=== PATIENT | male | born 2000 | race Caucasian/White ===

== ENCOUNTER 2021-08-25 16:52 | Emergency (ER) | payer OTHER ==
[2021-08-25 17:02] VITALS: BP 148/97
--- NOTE | 2021-08-25 17:15 | ED Physician Documentation ---
PD HPI URI - Stated complaint Stated Complaint: COVID SYMPTOMS - Chief complaint Chief Complaint: Heent - History obtained from History obtained from: Patient - Additional information Additional information: 31-year-old gentleman sick since yesterday with nasal bastion and sore throat. Chills but no fevers or body aches. His daughter is sick with a viral URI. He needs Covid test. He is in the [place]. He has had 1 out of 2 moderna vaccines. Review of Systems Constitutional: reports: Chills. denies: Fever Nose: reports: Rhinorrhea / runny nose Throat: reports: Sore throat PD PAST MEDICAL HISTORY - Past Medical History Past Medical History: Yes Psych: Depression - Past Surgical History Past Surgical History: No HEENT: Tonsil/Adenoidectomy - Present Medications Home Medications: Ambulatory Orders Medication Instructions Recorded Confirmed Fluoxetine HCl [Prozac] 40 mg PO DAILY 08/25/21 08/25/21 - Allergies Allergies/Adverse Reactions: Allergies Allergy/AdvReac Type Severity Reaction Status Date / Time Penicillins Allergy Rash Verified 08/25/21 17:02 - Social History Does the pt smoke?: No Smoking Status: Never smoker PD ED PE NORMAL - Vitals Vital signs reviewed: Yes - General General: Alert and oriented X 3, No acute distress - HEENT HEENT: Pharynx benign (Oropharynx normal, surgically absent tonsils) - Neck Neck: Supple, no meningeal sign, No bony TTP - Cardiac Cardiac: RRR, No murmur - Respiratory Respiratory: No respiratory distress, Clear bilaterally - Neuro Neuro: Alert and oriented X 3, Normal speech Results - Vitals Vitals: Vital Signs - 24 hr 08/25/21 17:00 Temperature 36.8 C Heart Rate 99 Respiratory 12 Rate Blood Pressure 148/97 H O2 Saturation 97 Oxygen O2 Source Room air Departure - Departure Disposition: 01 Home, Self Care Clinical Impression: Viral syndrome Condition: Good Record reviewed to determine appropriate education?: Yes Instructions: ED Viral Syndrome Comments: You have a Covid test pending. You need to self quarantine until the result is done and negative. Do not leave your house. Do not get near anybody. The results should be done in 48 to 72 hours. We will call with a positive result, the fastest way to get a negative result for confirmation though is to go to the hospital website at [email or web address], click on the my [email or web address] tab and sign up for the patient portal. If any friends or family get sick and would like to have a Covid test done, but do not have signs or symptoms that would necessitate being hospitalized, we encourage testing through our coronavirus swabbing station, call [phone] to schedule an appointment. Ibuprofen as needed for aches and pains. Drink plenty of fluids. Return if worse. Forms: Activity restrictions
== END 2021-08-25 17:18 | disposition home or self-care (01) ==
LOC: EDBD 16:52 → ED 16:52
DX: B34.9 Viral infection, unspecified (principal); Z20.822 Contact with and (suspected) exposure to COVID-19
CPT/HCPCS: 99282; 99283

== ENCOUNTER 2021-09-13 13:19 | Emergency (ER) | payer OTHER ==
--- NOTE | 2021-09-13 14:06 | XRAY Report ---
PROCEDURE: Chest 1 View X-Ray INDICATIONS: Chest pain TECHNIQUE: One view of the chest was acquired. COMPARISON: None FINDINGS: Surgical changes and devices: None. Lungs and pleura: No pleural effusions or pneumothorax. Lungs are clear. Mediastinum: Mediastinal contours appear normal. Heart size is normal. Bones and chest wall: No suspicious bony lesions. Overlying soft tissues appear unremarkable. IMPRESSION: No acute cardiopulmonary pathology. Reviewed by: Christian Hernández MD on 09/13/2021 2:05 PM PDT Approved by: Christian Hernández MD on 09/13/2021 2:05 PM PDT Station ID: [id number]
[2021-09-13 14:13] LABS: BASOPHILS # (AUTO) 0.1 10^3/uL (0.0-0.1); BASOPHILS % (AUTO) 0.6 %; EOSINOPHILS # (AUTO) 0.1 10^3/uL (0.0-0.7); HCT - HEMATOCRIT 44.6 % (42.0-52.0); HGB - HEMOGLOBIN 15.3 g/dL (14.0-18.0); LYMPHOCYTES # (AUTO) 1.7 10^3/uL (1.5-3.5); LYMPHOCYTES % (AUTO) 17.4 %; MEAN CORPUSCULAR HEMOGLOBIN 29.5 pg (27.0-31.0); MEAN CORPUSCULAR HGB CONC 34.3 g/dL (32.0-36.0); MEAN CORPUSCULAR VOLUME 86.1 fL (80.0-94.0); MEAN PLATELET VOLUME 9.8 fL (7.4-11.4); MONOCYTES % (AUTO) 10.1 %; NEUTROPHILS # (AUTO) 6.9 10^3/uL (1.5-6.6); NEUTROPHILS % (AUTO) 70.4 %; PLT - PLATELET COUNT 229 10^3/uL (130-450); RED BLOOD COUNT 5.18 10^6/uL (4.70-6.10); RED CELL DISTRIBUTION WIDTH 12.8 % (12.0-15.0); WHITE BLOOD COUNT 9.8 x10^3/uL (4.8-10.8)
[2021-09-13 14:33] LABS: ALBUMIN 4.4 g/dL (3.2-5.5); ALBUMIN/GLOBULIN RATIO 1.3 (1.0-2.2); BILIRUBIN,TOTAL 0.8 mg/dL (0.2-1.0); CALCIUM 9.3 mg/dL (8.5-10.3); CREATININE 0.8 mg/dL (0.6-1.2); POTASSIUM 4.1 mmol/L (3.5-5.0); TOTAL PROTEIN 7.8 g/dL (6.7-8.2)
--- NOTE | 2021-09-13 14:43 | ED Physician Documentation ---
PD HPI CHEST PAIN - Stated complaint Stated Complaint: chest px - Chief complaint Chief Complaint: Cardiac - History obtained from History obtained from: Patient - History of Present Illness Timing - onset: How many days ago ( 3 days ago) Quality: Stabbing - Additional information Additional information: Pt is 31yo M presenting with chest pain. PMS significant for depression for which he takes prozac as well as recent ED evaluation at this facility for URI symptoms (08/25) Reports 3 days stabbing chest pain worse with deep inspiration. Denies fever, cough, hemoptysis, hospitalizations, travel, hisory of blood clots, illicit substance abuse. Review of Systems Constitutional: denies: Fever, Fatigue Eyes: denies: Loss of vision, Decreased vision Ears: denies: Loss of hearing Cardiac: reports: Chest pain / pressure Respiratory: denies: Dyspnea, Cough, Hemoptysis, Wheezing GI: denies: Abdominal Pain Musculoskeletal: denies: Neck pain Neurologic: denies: Generalized weakness Psychiatric: reports: Depressed. denies: Suicidal, Homicidal, Hallucinations, Delusions, Anxiety, Insomnia PD PAST MEDICAL HISTORY - Past Medical History Psych: Depression - Past Surgical History Past Surgical History: No HEENT: Tonsil/Adenoidectomy - Present Medications Home Medications: Ambulatory Orders Medication Instructions Recorded Confirmed Fluoxetine HCl [Prozac] 40 mg PO DAILY 08/25/21 08/25/21 Acetaminophen [Tylenol] 650 mg PO Q6H PRN #30 tablet 09/13/21 Ibuprofen [Motrin] 1 tablet PO Q8H PRN #30 tablet 09/13/21 - Allergies Allergies/Adverse Reactions: Allergies Allergy/AdvReac Type Severity Reaction Status Date / Time Penicillins Allergy Rash Verified 09/13/21 13:36 - Social History Does the pt smoke?: No Smoking Status: Never smoker PD ED PE NORMAL - General General: Alert and oriented X 3, No acute distress - HEENT HEENT: Atraumatic, EOMI - Neck Neck: Supple, no meningeal sign - Cardiac Cardiac: RRR, No murmur, No gallop, No rub, Strong equal pulses - Respiratory Respiratory: No respiratory distress, Clear bilaterally - Abdomen Abdomen: Normal bowel sounds, Non tender Results - Vitals Vitals: Vital Signs - 24 hr 09/13/21 13:33 Temperature 36.4 C L Heart Rate 103 H Respiratory 18 Rate Blood Pressure 150/90 H O2 Saturation 96 Oxygen O2 Source Room air - Labs Labs: Laboratory Tests 09/13/21 09/13/21 09/13/21 14:05 14:05 14:05 WBC 9.8 RBC 5.18 Hgb 15.3 Hct 44.6 MCV 86.1 MCH 29.5 MCHC 34.3 RDW 12.8 Plt Count 229 MPV 9.8 Neut # (Auto) 6.9 H Lymph # (Auto) 1.7 Sac # (Auto) 1.0 Eos # (Auto) 0.1 Baso # (Auto) 0.1 Absolute Nucleated RBC 0.00 Nucleated RBC % 0.0 Sodium 139 Potassium 4.1 Chloride 102 Carbon Dioxide 26 Anion Gap 11.0 BUN 21 H Creatinine 0.8 Estimated GFR (MDRD) 111 Glucose 83 Calcium 9.3 Total Bilirubin 0.8 AST 22 ALT 26 Alkaline Phosphatase 41 L Troponin I High Sens < 2.3 L Total Protein 7.8 Albumin 4.4 Globulin 3.4 Albumin/Globulin Ratio 1.3 Lipase 31 PD MEDICAL DECISION MAKING - ED course Complexity details: reviewed old records, reviewed results, re-evaluated patient, considered differential ED course: Pt presented with 3 days of chest pain made worse with deep inspiration. A febrile, hemodynamically stable on arrivle. Vitals WNL and non toxic on exam, WELLS and PERK Negative. EKG without indication of acute cardiac ischemia. CXR non acute. Troponin negative. Pt re-evaluated and found to be resting comfortably and in no acute distress. Will discharge with course of Tylenol and ibuprofen. Encouraged followup with PCP. Otherwise clear return precautions and followup instructions given prior to discharge. Departure - Departure Disposition: 01 Home, Self Care Clinical Impression: Chest pain, Pleurisy Condition: Good Instructions: ED Chest Pain NonCardiac, ED Chest Pain Pleurisy Prescriptions: Ibuprofen [Motrin] 1 tablet PO Q8H PRN #30 tablet PRN Reason: PAIN &/OR FEVER Acetaminophen [Tylenol] 650 mg PO Q6H PRN #30 tablet PRN Reason: PRN PAIN &/OR FEVER Comments: [facility] All of the testing performed today including your EKG, blood tests and chest xray were all very reassuring. I would like you to use alternating tylenol and ibuprofen at home for pain control. Please drink plenty of liquid and get pleanty of rest over the next few days. Please follow up with your PCP as soon as able. If at anytime you have any new or worsening symptoms please do not hesitate to return to the emergency department.
[2021-09-13 15:16] VITALS: BP 143/98
== END 2021-09-13 15:15 | disposition home or self-care (01) ==
LOC: ED 13:19
DX: R07.9 Chest pain, unspecified (principal); R09.1 Pleurisy; F32.9 Major depressive disorder, single episode, unspecified
CPT/HCPCS: 36415; 80053; 83690; 84484; 85025; 85379; 93005; 99284

== ENCOUNTER 2021-10-21 20:38 | Emergency (ER) | payer OTHER ==
--- NOTE | 2021-10-21 20:55 | ED Physician Documentation ---
PD HPI FOCAL NEURO - Stated complaint Stated Complaint: LEFT HAND NUMBNESS - Chief complaint Chief Complaint: Neuro - History obtained from History obtained from: Patient - History of Present Illness Timing - onset: Enter time (19:00), Today Timing - details: Gradual onset Severity of deficit: Mild Weakness: Hand, Left Numbness: Hand, Left Associated symptoms: No: Headache, Nausea / vomiting, Seizure, Syncope, Fall, Head injury, Chest pain, Neck pain, Back pain, Fever Contributing factors: negative: Anticoagulated, Vascular dz, Atrial fibrillation, Prosthetic heart valve Baseline status: positive: A&OX3, ambulatory, indep Similar symptoms before: Has not had sx before - Additional information Additional information: c/o gradual onset left hand paresthesias of thumb and 2nd finger, weakness predominantly of thumb. Onset approximately 7 PM tonight and increased to the point of having difficulty holding a book he was reading. The paresthesia/b urning sensation has subsequently been radiating up to forearm and as high as axilla (left). denies h/o similar symptoms, denies neck pain. He is right hand dominant. he had an influenza vaccination earlier today. Review of Systems Constitutional: reports: Reviewed and negative Eyes: reports: Reviewed and negative Cardiac: reports: Reviewed and negative Respiratory: reports: Reviewed and negative Skin: denies: Rash Musculoskeletal: denies: Neck pain, Back pain, Extremity pain, Joint pain, Extremity swelling, Joint swelling Neurologic: reports: Focal weakness (limited to thumb (left)), Numbness (paresth esias but not angelica numbness). denies: Generalized weakness, Headache PD PAST MEDICAL HISTORY - Past Medical History Past Medical History: No Psych: Depression - Past Surgical History Past Surgical History: No HEENT: Tonsil/Adenoidectomy - Present Medications Home Medications: Ambulatory Orders Medication Instructions Recorded Confirmed Fluoxetine HCl [Prozac] 40 mg PO DAILY 08/25/21 08/25/21 Acetaminophen [Tylenol] 650 mg PO Q6H PRN #30 tablet 09/13/21 Ibuprofen [Motrin] 1 tablet PO Q8H PRN #30 tablet 09/13/21 - Allergies Allergies/Adverse Reactions: Allergies Allergy/AdvReac Type Severity Reaction Status Date / Time Penicillins Allergy Rash Verified 10/21/21 20:51 - Social History Does the pt smoke?: No Smoking Status: Never smoker PD ED PE NORMAL - Vitals Vital signs reviewed: Yes - General General: Alert and oriented X 3, No acute distress, Well developed/nourished - HEENT HEENT: PERRL, EOMI - Derm Derm: Normal color, Warm and dry, No rash - Extremities Extremities: No deformity, No tenderness to palpate, Normal ROM s pain, No edema - Neuro Neuro: Alert and oriented X 3, No sensory deficit, Other (weakness of left thumb extension (3/5) but 5/5 flexion and 4/5 abduction. no atrophy noted left hand) NIHSS - Level of Consciousness Level of consciousness: (0) Alert, Keenly responsive LOC Questions: (0) Answers both Q's correct LOC Commands: (0) Performs both correctly - Gaze Best Gaze: (0) Normal - Visual Visual: (0) No loss - Facial Palsy Facial Palsy: (0) Normal, symmetrical movement - Motor Arms (both separate) Motor Arm (right): (0) No drift Motor Arm (left): (0) No drift - Motor Legs (both separate) Motor Leg (right): (0) No drift Motor Leg (left): (0) No drift - Limb Ataxia Limb Ataxia: (0) Absent - Sensory Sensory: (0) Normal - Best Language Best Language: (0) No aphasia - Dysarthria Dysarthria: (0) Normal - Extinction and Inattention (formally neg Extinction and inattention: (0) No abnormality - Total Score/Results Total Score/Result: 0 Results - Vitals Vitals: Oxygen O2 Source Room air - Labs Labs: Laboratory Tests 10/21/21 10/21/21 21:20 21:20 WBC 9.8 RBC 5.39 Hgb 15.9 Hct 46.9 MCV 87.0 MCH 29.5 MCHC 33.9 RDW 13.0 Plt Count 205 MPV 9.7 Neut # (Auto) 6.3 Lymph # (Auto) 2.4 [place] # (Auto) 0.9 Eos # (Auto) 0.2 Baso # (Auto) 0.1 Absolute Nucleated RBC 0.00 Nucleated RBC % 0.0 Sodium 139 Potassium 4.1 Chloride 100 L Carbon Dioxide 30 Anion Gap 9.0 BUN 25 H Creatinine 0.8 Estimated GFR (MDRD) 111 Glucose 92 Calcium 9.6 - Rads (name of study) CTA head Radiology: Prelim report reviewed, See rad report CTA neck Radiology: Prelim report reviewed, See rad report PD MEDICAL DECISION MAKING - ED course Complexity details: reviewed results, re-evaluated patient, considered differential, d/w patient ED course: presents with left hand paresthesias and weakness. He indicates roughly equal LTS on hands on NIHSS exam. He does exhibit weakness of thumb extension though not with abduction. His NIHSS score is zero (no weakness as indicated by lack of drift on extremity exams). he also indicates episodic cramping sensation in 1st and 2nd webspaces, as well as difficulty holding a book due to paresthesias and thumb weakness. He also describes paresthesia and mild burning sensation traveling up from hand to elbow and as high as axilla. He received a flu shot earlier today which is likely coincident (asymetric nature of c/o makes GBS unlikely). His symptoms are predominantly limited to median nerve distribution ; I suspect median or radial nerve palsy, possibly entrapment such as carpal tunnel syndrome. His tests tonight are unremarkable including CTA head and neck. Reviewed test results with patient as well as my suspected diagnoses. He will likely need further testing in outpatient setting unless symptoms resolve, and instructed to return if worse or new and concerning signs/symptoms develop. Departure - Departure Disposition: 01 Home, Self Care Clinical Impression: Paresthesia Condition: Good Instructions: ED Carpal Tunnel, ED Paraesthesias Follow-Up: KARLI CHÁVEZ DO [Primary Care Provider] - Comments: I am providing you with discharge instructions on carpal tunnel syndrome because your symptoms have some similarities to those that would be typical for carpal tunnel syndrome. However, there are other elements in your description that would be atypical, and thus this is not a final diagnosis. Follow up with your primary care provider; further testing and specialist referral (such as a neurologist) might be needed to achieve a definitive diagnosis. Discharge Date/Time: 10/21/21 22:58
[2021-10-21] MEDS ORDERED: IOVERSOL 320 100 ML VIAL IVP ONE ×2 (21:24→21:54)
[2021-10-21 21:25] LABS: BASOPHILS # (AUTO) 0.1 10^3/uL (0.0-0.1); BASOPHILS % (AUTO) 0.5 %; EOSINOPHILS # (AUTO) 0.2 10^3/uL (0.0-0.7); EOSINOPHILS % (AUTO) 1.6 %; HCT - HEMATOCRIT 46.9 % (42.0-52.0); HGB - HEMOGLOBIN 15.9 g/dL (14.0-18.0); LYMPHOCYTES # (AUTO) 2.4 10^3/uL (1.5-3.5); LYMPHOCYTES % (AUTO) 24.7 %; MEAN CORPUSCULAR HEMOGLOBIN 29.5 pg (27.0-31.0); MEAN CORPUSCULAR HGB CONC 33.9 g/dL (32.0-36.0); MEAN PLATELET VOLUME 9.7 fL (7.4-11.4); MONOCYTES # (AUTO) 0.9 10^3/uL (0.0-1.0); MONOCYTES % (AUTO) 8.6 %; NEUTROPHILS # (AUTO) 6.3 10^3/uL (1.5-6.6); NEUTROPHILS % (AUTO) 64.3 %; PLT - PLATELET COUNT 205 10^3/uL (130-450); RED BLOOD COUNT 5.39 10^6/uL (4.70-6.10); WHITE BLOOD COUNT 9.8 x10^3/uL (4.8-10.8)
[2021-10-21 21:34] LABS: CALCIUM 9.6 mg/dL (8.5-10.3); CREATININE 0.8 mg/dL (0.6-1.2); POTASSIUM 4.1 mmol/L (3.5-5.0)
--- NOTE | 2021-10-21 22:22 | CT Report ---
PROCEDURE: ANGIO HEAD W/WO INDICATIONS: left hand weakness, paresthesias CONTRAST: IV CONTRAST: Optiray 320 ml: 80 PO CONTRAST: *NO PO CONTRAST TECHNIQUE: Precontrast 4.5 mm thick angled axial sections acquired from the foramen magnum to the vertex. Afte r the administration of intravenous contrast, 1 mm thick sections acquired through the [place] of Will is. Postcontrast 4.5 mm thick sections then re-acquired from the foramen magnum to the vertex. 3-di mensional fukbphe-jsasphcqv-fasuhspsii (MIP) and/or volume rendering reformats were acquired of the c entral intracranial vasculature. For radiation dose reduction, the following was used: automated ex posure control, adjustment of mA and/or kV according to patient size. COMPARISON: None FINDINGS: Image quality: Excellent. Anterior circulation: Intracranial internal carotid arteries are normal in size and flow. The flow within the paired anterior cerebral arteries is normal and symmetric. The flow within the middle cer ebral arteries is normal and symmetric. The anterior communicating artery is seen. No aneurysms are seen. Posterior circulation: Visualized portions of the vertebral arteries demonstrate normal caliber, and join to form a normal appearing basilar artery. Near origin of the right posterior cerebral ar sotero. Flow within the posterior cerebral arteries is normal and symmetric. No aneurysms are seen. CSF spaces: Ventricles are normal in size and shape. Basal cisterns are patent. No extra-axial flu id collections. Brain: No midline shift. No intracranial bleeds or masses. Joseph-white matter interface appears int act. Skull and face: Calvarium and facial bones appear intact, without suspicious lesions. Sinuses: Visualized sinuses and mastoids are clear. IMPRESSION: Negative cerebral MR angiography. Reviewed by: Fallon Newman MD on 10/21/2021 10:21 PM [facility] Approved by: Fallon Newman MD on 10/21/2021 10:21 PM PST Station ID: [id number]
--- NOTE | 2021-10-21 22:25 | CT Report ---
PROCEDURE: ANGIO NECK W INDICATIONS: left hand weakness, paresthesias CONTRAST: IV CONTRAST: Optiray 320 ml: 80 PO CONTRAST: *NO PO CONTRAST TECHNIQUE: After the administration of intravenous contrast, 1.5 mm axial sections acquired from the aortic arch to the [place] of [place]. Coronal 3-D maximum intensity projection (MIP) and/or volume rendering ref ormats were then performed. For radiation dose reduction, the following was used: automated exposur e control, adjustment of mA and/or kV according to patient size. COMPARISON: None. FINDINGS: Image quality: Excellent. Carotid system: The great vessels demonstrate a conventional anatomy as they arise from the aortic a rch. The origins of the common carotid arteries appear patent. The common carotid arteries demonstr ate normal calibers and courses. The bifurcation regions appear normal bilaterally. The internal ca rotid arteries demonstrate normal caliber and course. Posterior circulation: The origins of the vertebral arteries appear patent. The more superior porti ons of the vertebral arteries demonstrate normal course and caliber. They join to form a normal appe aring basilar artery. Soft tissues: Visualized neck soft tissues demonstrate no suspicious abnormalities. The thyroid is normal in size and there are no incidental findings. Bones: No suspicious bony lesions. Visualized cervical spine appears normally aligned. IMPRESSION: Negative CT angiography of the neck. The estimate of stenosis included in the report of the imaging study was calculated using the NASCET method CLINICAL RECOMMENDATION STATEMENTS: In patients <35 years with an ITN detected on CT, MRI, or extrathyroidal ultrasound, the Committee re commends further evaluation with dedicated thyroid ultrasound if the nodule is "e1 cm and has no susp icious imaging features, and if the patient has normal life expectancy. In patients "e35 years with an ITN detected on CT, MRI, or extrathyroidal ultrasound, the Committee r ecommends further evaluation with dedicated thyroid ultrasound if the nodule is "e1.5 cm and has no s uspicious imaging features, and if the patient has normal life expectancy. (ACR, 2014) Reviewed by: Fallon Newman MD on 10/21/2021 10:23 PM PST Approved by: Fallon Newman MD on 10/21/2021 10:23 PM PST Station ID: [id number]
[2021-10-21 22:53] VITALS: BP 120/69
== END 2021-10-21 22:58 | disposition home or self-care (01) ==
LOC: ED 20:38
DX: R20.2 Paresthesia of skin (principal)
CPT/HCPCS: 36415; 70496; 70498; 80048; 85025; 99282; 99284; Q9967

== ENCOUNTER 2022-03-26 21:20 | Emergency (ER) | payer OTHER ==
[2022-03-26 21:29] VITALS: BP 128/85
[2022-03-26 21:45] LABS: RAPID STREP SCREEN Negative (Negative)
[2022-03-26] MEDS ORDERED: CHERRY SYRUP 10 ML UDC PO ONE (21:51)
[2022-03-26] MEDS ORDERED: DEXAMETHASONE 10 MG/ML VIAL PO STA (21:51)
--- NOTE | 2022-03-26 21:55 | ED Physician Documentation ---
PD HPI URI - Stated complaint Stated Complaint: SORE THROAT/FATIGUE/LIGHT HEADED - Chief complaint Chief Complaint: Heent - History obtained from History obtained from: Patient - Additional information Additional information: Patient is a 31-year-old male with a sore throat for 2 days and a feeling generalized malaise. He reports having chills but no fevers. He has a dry cough. His and kids were sick last week with similar symptoms. He is vaccinated for COVID. His family took COVID test last week which were negative the patient has not taken 1. He was sent home from work today. He has not taken anything for his symptoms. He is able to ambulate without difficulty. He denies chest pain, difficulty breathing, abdominal pain, vomiting, diarrhea. Review of Systems Constitutional: reports: Chills. denies: Fever Nose: denies: Congestion Throat: reports: Sore throat Cardiac: denies: Chest pain / pressure, Palpitations Respiratory: denies: Dyspnea GI: denies: Abdominal Pain, Vomiting Skin: denies: Rash Musculoskeletal: denies: Back pain Neurologic: denies: Headache PD PAST MEDICAL HISTORY - Past Medical History Past Medical History: Yes Psych: Depression - Past Surgical History Past Surgical History: Yes HEENT: Tonsil/Adenoidectomy - Present Medications Home Medications: Ambulatory Orders Medication Instructions Recorded Confirmed Propranolol [Inderal] 10 mg PO DAILY 03/26/22 03/26/22 - Allergies Allergies/Adverse Reactions: Allergies Allergy/AdvReac Type Severity Reaction Status Date / Time Penicillins Allergy Rash Verified 03/26/22 21:30 - Social History Does the pt smoke?: No Smoking Status: Never smoker Does the pt drink ETOH?: Yes Does the pt have substance abuse?: No - Immunizations Immunizations are current?: Yes - POLST Patient has POLST: No PD ED PE NORMAL - General General: Alert and oriented X 3, No acute distress, Well developed/nourished - HEENT HEENT: Atraumatic, PERRL, EOMI, Moist mucous membranes, Pharynx benign (No exudate, no swelling, Normal speech,No trismus) - Neck Neck: Supple, no meningeal sign - Cardiac Cardiac: RRR, No murmur, Strong equal pulses - Respiratory Respiratory: No respiratory distress, Clear bilaterally - Derm Derm: Normal color - Extremities Extremities: No edema - Neuro Neuro: Alert and oriented X 3, No motor deficit, Normal speech - Psych Psych: Normal mood, Normal affect Results - Vitals Vitals: Vital Signs - 24 hr 03/26/22 21:24 Temperature 36.2 C L Heart Rate 96 Respiratory 16 Rate Blood Pressure 128/85 H O2 Saturation 99 Oxygen O2 Source Room air - Labs Labs: Laboratory Tests 03/26/22 21:28 Group A Strep Rapid Negative PD MEDICAL DECISION MAKING - ED course Complexity details: reviewed results, d/w patient ED course: Patient with sore throat for 2 days. No signs of airway compromise or oral abscess.Vital signs are stable and patient is ambulatory. Strep test is negative. COVID swab obtained and is pending at time of discharge. Patient was given dose of Decadron for likely viral pharyngitis. Patient is tolerating p.o. and is nontoxic in appearance. Discussed continuing with supportive care and need for follow-up. Patient is aware of return precautions. Departure - Departure Disposition: 01 Home, Self Care Clinical Impression: Viral pharyngitis Condition: Stable Instructions: ED Pharyngitis Viral Comments: Omer you were evaluated for a sore throat today. Your strep test is negative and a culture is pending. You also had a COVID test and the result of that is pending. You did receive a dose of a steroid to help with inflammation. Please continue to use Motrin or Tylenol as needed for pains or fever. Please continue to hydrate and get plenty of rest. Return to the emergency department with worsening symptoms such as trouble breathing, trouble swallowing, Productive cough, Chest pain, weakness or with any concerns. You have a Covid test pending. You need to self quarantine until the result is done and negative. Do not leave your house. Do not get near anybody. The results should be done in 48 to 72 hours. We will call with a positive result, the fastest way to get a negative result for confirmation though is to go to the hospital website at [email or web address], click on the my [email or web address] tab and sign up for the patient portal. If any friends or family get sick and would like to have a Covid test done, but do not have signs or symptoms that would necessitate being hospitalized, there are multiple local options for Covid testing. [facility] keeps an updated list of testing and vaccination options at: [email or web address]. Forms: Activity restrictions Discharge Date/Time: 03/26/22 22:09
== END 2022-03-26 22:09 | disposition home or self-care (01) ==
LOC: EDBD → ED 21:20
DX: J02.8 Acute pharyngitis due to other specified organisms (principal); Z20.822 Contact with and (suspected) exposure to COVID-19
CPT/HCPCS: 87070; 87430; 87635; 99282; 99283; A9270

== ENCOUNTER 2022-04-09 09:44 | Outpatient (CLI) | payer OTHER ==
--- NOTE | 2022-04-09 12:33 | XRAY Report ---
PROCEDURE: Knee 2 View LT INDICATIONS: L KNEE PX TECHNIQUE: 2 views of the left knee(s) were acquired. COMPARISON: None. FINDINGS: Bones: No fractures or dislocations. No suspicious bony lesions. Chondrocalcinosis. Minimal osteop hytes. Soft tissues: Tiny joint effusion. No suspicious soft tissue calcifications. IMPRESSION: Mild changes of CPPD arthropathy. No evidence acute bony abnormality of the left knee. If clinical suspicion and/or symptoms persist, further assessment with repeat plain films or advanced imaging (e.g., CT, MRI, or bone scan) may be helpful for further assessment. Reviewed by: Laith Fontanez MD on 04/09/2022 12:32 PM PDT Approved by: Laith Fontanez MD on 04/09/2022 12:32 PM PDT Station ID: [id number]
== END 2022-04-09 23:59 | disposition home or self-care (01) ==
LOC: DI.N 09:44
PROVIDERS: ATTEND Family Medicine
DX: M11.862 Other specified crystal arthropathies, left knee (principal)

== ENCOUNTER 2022-04-21 22:02 | Emergency (ER) | payer OTHER ==
--- NOTE | 2022-04-21 23:42 | ED Physician Documentation ---
PD HPI BACK PAIN - Stated complaint Stated Complaint: LOW BACK SPASMS/RT LEG NUMBNESS - Chief complaint Chief Complaint: Back Pain - History obtained from History obtained from: Patient - History of Present Illness Timing - onset: How many weeks ago (2) Timing - details: Gradual onset, Waxing and waning Location: Right Associated symptoms: Numbness (paresthesias right navarro, chronic). No: Fever, Weakness, Incontinent of urine, Unable to urinate, Hematuria, Incontinent of stool Worsened by: Movement Similar symptoms before: Diagnosis (herniated disc, per patient) Recently seen: Not recently seen - Additional information Additional information: c/o low back pain, predominantly right-sided with radiation down RLE, from a herniated disc (per patient). Patient says he has had similar back pain episodically for years, attributed to herniated disc. He says the pain has been episodic but steadily worsening over past 2 weeks. Pain is distinctly worse with movement involving lower back. Denies injury. Review of Systems Constitutional: reports: Reviewed and negative : denies: Unable to Void, Incontinent Musculoskeletal: reports: Back pain. denies: Extremity swelling, Pain with weight bearing Neurologic: reports: Numbness (mild right pre-tibial paresthesia, chronic). denies: Focal weakness PD PAST MEDICAL HISTORY - Past Medical History Past Medical History: Yes Psych: Depression - Past Surgical History Past Surgical History: Yes HEENT: Tonsil/Adenoidectomy - Present Medications Home Medications: Ambulatory Orders Medication Instructions Recorded Confirmed Propranolol [Inderal] 10 mg PO DAILY 03/26/22 03/26/22 Cyclobenzaprine [Flexeril] 10 mg PO TID PRN #20 tablet 04/22/22 Oxycodone HCl/Acetaminophen 1 - 2 each PO Q6H PRN #20 tablet 04/22/22 [Percocet 5-325 mg Tablet] - Allergies Allergies/Adverse Reactions: Allergies Allergy/AdvReac Type Severity Reaction Status Date / Time Penicillins Allergy Rash Verified 04/21/22 22:15 - Social History Does the pt smoke?: No Smoking Status: Never smoker Does the pt drink ETOH?: Yes Does the pt have substance abuse?: No - Immunizations Immunizations are current?: Yes - POLST Patient has POLST: No PD ED PE NORMAL - Vitals Vital signs reviewed: Yes - General General: Alert and oriented X 3, No acute distress, Well developed/nourished - Derm Derm: Normal color, Warm and dry, No rash - Extremities Extremities: No edema - Neuro Neuro: Alert and oriented X 3, No motor deficit (5/5 bilateral dorsi/plantarflexion. LTS intact BLE), No sensory deficit Results - Vitals Vitals: Oxygen O2 Source Room air PD MEDICAL DECISION MAKING - ED course Complexity details: considered differential, d/w patient ED course: Patient c/o exacerbation of chronic LBP radiating down RLE . He says this is not a new problem for him, just exacerbation of symptoms that have been attributed to lumbar disc herniation. He has no red flags such as fever, weakness, numbness (except right pre-tibial paresthesias which he says is a chronic symptom). He is given take-home percocet and rx for percocet and flexeril e- prescribed to his pharmacy of choice. I am prescribing a short course of short-acting opioid pain medication for this patient. 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 I have discussed that the opioids are for short term therapy only, and will not be refilled from the ED Departure - Departure Disposition: 01 Home, Self Care Clinical Impression: Low back pain Qualifiers: Chronicity: acute Back pain laterality: bilateral Sciatica presence: with sciatica Sciatica laterality: sciatica of right side Qualified Code(s): M54.41 - Lumbago with sciatica, right side Condition: Good Instructions: ED Sciatica Follow-Up: [facility] [Provider Group] Prescriptions: Cyclobenzaprine [Flexeril] 10 mg PO TID PRN #20 tablet PRN Reason: Spasms Oxycodone HCl/Acetaminophen [Percocet 5-325 mg Tablet] 1 - 2 each PO Q6H PRN #20 tablet PRN Reason: pain Comments: Prescriptions for cyclobenzaprine (muscle relaxer) and oxycodone/acetaminophen (percocet; narcotic-strength pain medication) have been electronically submitted to [facility] pharmacy in [place]. Contact your primary care provider in the morning to arrange for next available appointment. I am prescribing a short course of narcotic pain medication for you. These are potentially dangerous and addictive medications that should be used carefully. These medications may constipate you. Take an lqjb-yev-xyznwcg stool softener (docusate) twice daily with plenty of water while taking these medications. If you go 24 hours without a bowel movement, take bqll-scu-kzgjyrj miralax, per lucy enrique instructions. Do not drink or drive while taking these medications. If you received narcotic or sedating medications while in the emergency department, do not drive for 24 hours. Store this medication in a safe, secure place and out of reach of children. It is a violation of federal law to give or sell this medication to another person or to use in a manner other than prescribed. The ED will not refill narcotic prescriptions, including prescriptions lost or stolen. To dispose of unwanted medications: 1. [facility] [address] in [place] has a medication drop box. They accept prescription medications (in pill form) Thursday through Thursday 9:00 a.m. to 5:00 p.m. 2. The [facility] accepts prescription medications (in pill form only) for disposal year round. Call for more information. 3. Contact the [facility] for the next [facility] sponsored prescription drug collection event. , [id number], or [id number]; Forms: Activity restrictions Discharge Date/Time: 04/22/22 00:18
[2022-04-22] MEDS ORDERED: CYCLOBENZAPRINE 10 MG Prepack 2 PO PRN (00:05)
[2022-04-22] MEDS ORDERED: oxyCODONE/ACET 5/325 Prepack 4 PO STA (00:05)
[2022-04-22 00:18] VITALS: BP 138/91
== END 2022-04-22 00:18 | disposition home or self-care (01) ==
LOC: ED 22:02 → EDBD 22:02 → ED 04-22 00:18
DX: M54.41 Lumbago with sciatica, right side (principal)
CPT/HCPCS: 99282; 99283

== ENCOUNTER 2022-05-12 16:08 | Outpatient (CLI) | payer OTHER ==
[2022-05-12 17:52] LABS: BASOPHILS # (AUTO) 0.1 10^3/uL (0.0-0.1); BASOPHILS % (AUTO) 0.7 %; EOSINOPHILS # (AUTO) 0.1 10^3/uL (0.0-0.7); EOSINOPHILS % (AUTO) 1.5 %; HCT - HEMATOCRIT 47.3 % (42.0-52.0); HGB - HEMOGLOBIN 15.9 g/dL (14.0-18.0); LYMPHOCYTES # (AUTO) 1.8 10^3/uL (1.5-3.5); LYMPHOCYTES % (AUTO) 23.3 %; MEAN CORPUSCULAR HEMOGLOBIN 28.3 pg (27.0-31.0); MEAN CORPUSCULAR HGB CONC 33.6 g/dL (32.0-36.0); MEAN CORPUSCULAR VOLUME 84.2 fL (80.0-94.0); MEAN PLATELET VOLUME 10.4 fL (7.4-11.4); MONOCYTES # (AUTO) 0.9 10^3/uL (0.0-1.0); MONOCYTES % (AUTO) 11.7 %; NEUTROPHILS # (AUTO) 4.7 10^3/uL (1.5-6.6); NEUTROPHILS % (AUTO) 62.4 %; PLT - PLATELET COUNT 218 10^3/uL (130-450); RED BLOOD COUNT 5.62 10^6/uL (4.70-6.10); WHITE BLOOD COUNT 7.5 x10^3/uL (4.8-10.8)
[2022-05-12 18:14] LABS: ALBUMIN 4.7 g/dL (3.2-5.5); ALBUMIN/GLOBULIN RATIO 1.6 (1.0-2.2); BILIRUBIN,TOTAL 0.6 mg/dL (0.2-1.0); CALCIUM 9.3 mg/dL (8.5-10.3); CREATININE 0.8 mg/dL (0.6-1.2); POTASSIUM 4.2 mmol/L (3.5-5.0); TOTAL PROTEIN 7.7 g/dL (6.7-8.2)
== END 2022-05-12 23:59 | disposition home or self-care (01) ==
LOC: LAB.N 16:08
PROVIDERS: ATTEND Physician Assistant
DX: R10.9 Unspecified abdominal pain (principal)
CPT/HCPCS: 36415; 80053; 83690; 85025

== ENCOUNTER 2022-07-22 20:29 | Emergency (ER) | payer OTHER ==
--- NOTE | 2022-07-22 22:34 | ED Physician Documentation ---
PD HPI BACK PAIN - Stated complaint Stated Complaint: LOWER BACK PAIN - Chief complaint Chief Complaint: Back Pain - History obtained from History obtained from: Patient - History of Present Illness Timing - details: Gradual onset, Waxing and waning Location: Lower, Right Quality: Pain, Spasm Associated symptoms: No: Fever, Weakness, Numbness, Incontinent of urine, Unable to urinate, Hematuria, Incontinent of stool Improves with: Rest Worsened by: Movement Similar symptoms before: Diagnosis (sciatica, herniated discs) Recently seen: Not recently seen - Additional information Additional information: c/o 3 days of gradual onset, gradually worsening right lower back pain that radiates down RLE. Patient says "I have some herniated discs and I'm having a flare up". He says he has had epidurals for this problem, both recently as well as upcoming/scheduled. No recent injury. Review of Systems Constitutional: denies: Fever GI: denies: Abdominal Pain : denies: Unable to Void, Incontinent Musculoskeletal: reports: Back pain. denies: Extremity swelling Neurologic: denies: Focal weakness, Numbness PD PAST MEDICAL HISTORY - Past Medical History Psych: Depression - Past Surgical History Past Surgical History: Yes HEENT: Tonsil/Adenoidectomy - Present Medications Home Medications: Ambulatory Orders Medication Instructions Recorded Confirmed Propranolol [Inderal] 10 mg PO DAILY 03/26/22 03/26/22 Cyclobenzaprine [Flexeril] 10 mg PO TID PRN #20 tablet 04/22/22 Oxycodone HCl/Acetaminophen 1 - 2 each PO Q6H PRN #20 tablet 04/22/22 [Percocet 5-325 mg Tablet] Cyclobenzaprine [Flexeril] 10 mg PO TID PRN #20 tablet 07/22/22 Oxycodone HCl/Acetaminophen 1 - 2 each PO Q6H PRN #14 tablet 07/22/22 [Percocet 5-325 mg Tablet] - Allergies Allergies/Adverse Reactions: Allergies Allergy/AdvReac Type Severity Reaction Status Date / Time Penicillins Allergy Rash Verified 07/22/22 20:34 - Social History Does the pt smoke?: No Smoking Status: Never smoker Does the pt drink ETOH?: Yes Does the pt have substance abuse?: No - Immunizations Immunizations are current?: Yes - POLST Patient has POLST: No PD ED PE NORMAL - Vitals Vital signs reviewed: Yes - General General: Alert and oriented X 3, Well developed/nourished, Other (appears uncomfortable) - Back Back: No CVA TTP, No spinal TTP - Derm Derm: No rash - Extremities Extremities: Normal ROM s pain, No edema - Neuro Neuro: No motor deficit, No sensory deficit Results - Vitals Vitals: Oxygen O2 Source Room air PD MEDICAL DECISION MAKING - ED course Complexity details: reviewed old records, re-evaluated patient, considered differential, d/w patient ED course: Presents with exacerbation of recurrent/chronic low back pain/sciatica. He is given 2mg IM dilaudid, and take-home packs of percocet and flexeril with prescriptions for percocet and flexeril sent to his pharmacy of choice. I am prescribing a short course of short-acting opioid pain medication for this patient. 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 I have discussed that the opioids are for short term therapy only, and will not be refilled from the ED Departure - Departure Disposition: 01 Home, Self Care Clinical Impression: Sciatica Qualifiers: Laterality: right Qualified Code(s): M54.31 - Sciatica, right side Condition: Good Instructions: ED Sciatica Follow-Up: ELPIDIO BASILIO MD [Primary Care Provider] - Prescriptions: Cyclobenzaprine [Flexeril] 10 mg PO TID PRN #20 tablet PRN Reason: Spasms Oxycodone HCl/Acetaminophen [Percocet 5-325 mg Tablet] 1 - 2 each PO Q6H PRN #14 tablet PRN Reason: pain Comments: Prescriptions for percocet and cyclobenzaprine have been electronically submitted to [facility] pharmacy in [place]. I am prescribing a short course of narcotic pain medication for you. These are potentially dangerous and addictive medications that should be used carefully. These medications may constipate you. Take an njwp-nli-wscnyev stool softener (docusate) twice daily with plenty of water while taking these medications. If you go 24 hours without a bowel movement, take cwqa-iya-ferpkwy miralax, per package instructions. Do not drink or drive while taking these medications. If you received narcotic or sedating medications while in the emergency department, do not drive for 24 hours. Store this medication in a safe, secure place and out of reach of children. It is a violation of federal law to give or sell this medication to another person or to use in a manner other than prescribed. The ED will not refill narcotic prescriptions, including prescriptions lost or stolen. To dispose of unwanted medications: 1. [facility] at [address] in [place] has a medication drop box. They accept prescription medications (in pill form) Thursday through Thursday 9:00 a.m. to 5:00 p.m. 2. The [facility] accepts prescription medications (in pill form only) for disposal year round. Call for more information. 3. Contact the [facility] for the next [facility] sponsored prescription drug collection event. , [phone], or [phone]; Discharge Date/Time: 07/22/22 23:20
[2022-07-22] MEDS ORDERED: HYDROmorphone 1 MG/ML CARPUJECT IM STA (22:48)
[2022-07-22] MEDS ORDERED: CYCLOBENZAPRINE 10 MG Prepack 2 PO PRN (22:48)
[2022-07-22] MEDS ORDERED: oxyCODONE/ACET 5/325 Prepack 4 PO STA (22:48)
[2022-07-22 23:22] VITALS: BP 130/80
== END 2022-07-22 23:20 | disposition home or self-care (01) ==
LOC: ED 20:29
DX: M54.31 Sciatica, right side (principal)
CPT/HCPCS: 99283; J1170